=== PATIENT | female | born 1955 | race Two or more races ===

== ENCOUNTER 2018-07-13 11:55 | Emergency (ER) | payer OTHER ==
[~2018-07-13] VITALS: Ht 162.6 cm; Wt 81.6 kg
--- NOTE | 2018-07-13 12:19 | Emergency Room Report ---
History of Present Illness General Chief Complaint: Pain Source: Patient Present Illness HPI 62-year-old female presents to the emergency department complaining of 8 out of 10 in severity pain localized to the anterior left marks that radiates to the lateral aspect of the ankle times one day. Patient reports that she noticed the pain at work and she please she may have stepped wrong. Patient denies falling completely to the ground she denies hitting her head or loss of consciousness she also denies midline neck or back pain. Denies numbness tingling or loss of sensation or gross motor movements of the extremities, incontinence of bowel or bladder. Denies CP, Palpitations, LOC, AMS, dizziness, Changes in Vision, weakness or a sudden severe headache. Allergies: Coded Allergies: No Known Allergies (Unverified , 07/13/18) Patient History Past Medical History: see triage record Past Surgical History: none Pertinent Family History: none Last Menstrual Period: 1995 Now: No Reviewed Nursing Documentation: PMH: Agreed; PSxH: Agreed Nursing Documentation-PMH Past Medical History: No Stated History Review of Systems All Other Systems: negative except mentioned in HPI Physical Exam Vital Signs Date Time Temp Pulse Resp B/P (MAP) Pulse Ox O2 Delivery O2 Flow Rate FiO2 07/13/18 12:03 97.9 74 16 160/103 97 Room Air Sp02 EP Interpretation: reviewed, normal General Appearance: no apparent distress, alert, GCS 15, non-toxic Head: normocephalic, atraumatic Eyes: bilateral eye normal inspection, bilateral eye PERRL ENT: hearing grossly normal, normal voice Neck: full range of motion Respiratory: lungs clear, normal breath sounds, speaking full sentences Cardiovascular #1: regular rate, rhythm, normal capillary refill Musculoskeletal: back normal, normal range of motion, tender - anterior left ankle/marks, swelling, tenderness Neurologic: alert, oriented x3, responsive, motor strength/tone normal, sensory intact, speech normal, grossly normal Psychiatric: judgement/insight normal Skin: normal color, no rash, warm/dry, well hydrated Medical Decision Making PA Attestation Dr. Zambrano is my supervising Physician whom patient management has been discussed with. Diagnostic Impression: Primary Impression: Contusion Qualified Codes: S90.02XA - Contusion of left ankle, initial encounter ER Course 62-year-old female presents to the emergency department complaining of 8 out of 10 in severity pain localized to the anterior left marks that radiates to the lateral aspect of the ankle times one day. Patient reports that she noticed the pain at work and she please she may have stepped wrong. Patient denies falling completely to the ground she denies hitting her head or loss of consciousness she also denies midline neck or back pain. Denies numbness tingling or loss of sensation or gross motor movements of the extremities, incontinence of bowel or bladder. Denies CP, Palpitations, LOC, AMS, dizziness, Changes in Vision, weakness or a sudden severe headache. Ddx considered but are not limited to Fracture, dislocation, contusion, Sprain/ Strain/Spasm, Epidural abscess, Neoplastic mets. Vital signs: are WNL, pt. is afebrile H&PE are most consistent with musculoskeletal injury will perform imaging to r/ o fractures/dislocations. ORDERS: - X-ray Left Ankle - negative for fx, Dislocation, or significant soft tissue injury, per preliminary read in ED, and signed by TRINA Valdivia, my supervising physician has reviewed, and agrees with my interpretation. ED INTERVENTIONS: - [facility] PO DISCHARGE: At this time pt. is stable for d/c to home. Will provide printed patient care instructions, and any necessary prescriptions. Care plan and follow up instructions have been discussed with the patient prior to discharge. Other X-Ray Diagnostic Results Other X-Ray Diagnostic Results : X-Ray ordered: left ankle # of Views/Limited Vs Complete: 3 View Indication: Pain EP Interpretation: Yes PA Xray: Interpretation reviewed, by supervising MD, and agrees with findings. Interpretation: no dislocation, no soft tissue swelling, no fractures Impression: No acute disease Last Vital Signs Date Time Temp Pulse Resp B/P (MAP) Pulse Ox O2 Delivery O2 Flow Rate FiO2 07/13/18 12:03 97.9 74 16 160/103 97 Room Air Disposition: HOME, SELF-CARE Condition: Stable Scripts No Active Prescriptions or Reported Meds Departure Forms: Return to Work Return to Work Date: Jul 16, 2018 Work Restrictions: No Heavy Lifting, No Prolonged Standing Other Restrictions: May return Sooner if Symptoms have resolved. Return to Full Activity: Jul 22, 2018 Patient Instructions: Contusion, Rjjc-pe-Posp Additional Instructions: Take medications as directed. Follow up with a Primary Care Provider in 3-5 days, even if your symptoms have resolved. --Please review list of primary care clinics, if you do not already have a primary care provider Return sooner to ED if new symptoms occur, or current symptoms become worse. - Please note that this Emergency Department Report was dictated using [employer] team manager technology software, occasionally this can lead to erroneous entry secondary to interpretation by the dictation equipment. Jyoti Valdivia Jul 13, 2018 12:19
[2018-07-13 12:20] VITALS: BP 140/75
--- NOTE | 2018-07-13 12:20 | NUR ---
ED Nurse Note: patient walked in by her self, complaining of left anckle pain. per patient she lost her balance and tripped over. AAO x 4, skin is intact, VSS at this time.
[2018-07-13] MEDS ORDERED: Norco 5mg/325mg tab ORAL ONE (12:30)
--- NOTE | 2018-07-13 12:30 | NUR ---
ED Nurse Note: patient went down for X ray
--- NOTE | 2018-07-13 12:40 | NUR ---
ED Nurse Note: patient is back, no acute disstress
[2018-07-13] MEDS ORDERED: TYLENOL EXTRA500 MG ORAL (13:29)
[2018-07-13 13:44] VITALS: BP 140/75
--- NOTE | 2018-07-13 13:45 | NUR ---
ED Nurse Note: Pt cleared by health care Provider for discharge. DC instructions/prescription was given and explained to pt and verbalized understanding of teachings. All medical deviecs such as ID band removed. Pt is AAO x4, ambulatory and left with all personal belongings.
--- NOTE | 2018-07-13 15:47 | Diagnostic Imaging Report ---
Indication: Ankle pain Technique: 3 views of the left ankle Comparison: none Findings: There is a small plantar spur. No acute fractures. No dislocations. The joint spaces are preserved. Surgical hardware is seen in the first metatarsal Impression: No acute bony trauma Postsurgical and posttraumatic changes as described
== END 2018-07-13 13:45 | disposition home or self-care (01) ==
LOC: EMR 12:40
DX: S90.02XA Contusion of left ankle, initial encounter (principal); X50.9XXA Other and unspecified overexertion or strenuous movements or postures, initial encounter; Y92.099 Unspecified place in other non-institutional residence as the place of occurrence of the external cause; Y99.0 Civilian activity done for income or pay
CPT/HCPCS: 99283